=== PATIENT | female | born 1960 | race Caucasian/White ===

== ENCOUNTER 2018-03-16 09:07 | Emergency (ER) | payer OTHER ==
[~2018-03-16] VITALS: Ht 152.4 cm; Wt 50.0 kg
[~2018-03-16 09:07] MED LIST: ACCU-CHEK AVIV1 EAC2 MC; ADULT LOW DOSE81 M1 PO; ADVIL200 MG PO; ASPIRIN E.C.81 M1 PO; Aspirin E.C. PO; BAYER CHEWABLE81 MG PO; CALCITRIOL; CALCITRIOL0.25 MCG PO; Colace PO; Diflucan PO; Ecotrin PO; FOSINOPRIL; FOSINOPRIL SODI10 MG PO; HUMULIN N100 UNITS/ SC; INDERAL20 MG PO; INDERAL40 MG PO; INDERAL60 MG PO; Inderal PO; KENALOG,ARISTOC80 GM TP; KEPPRA; KEPPRA500 MG PO; KLONOPIN0.5 M1 PO; Keppra PO; KlonoPIN PO; LANTUS 10100 UNITS/; LANTUS 10100 UNITS/ SC; LANTUS 3 M100 UNITS/ SC; LANTUS 3 M100 UNITS1 SC; LEVEMIR100 UNIT/2 SC; LEVOTHYROXINE SODIUM; LEVOTHYROXINE100 MCG PO; LEVOTHYROXINE112 MCG PO; LEVOTHYROXINE137 MCG PO; LEVOTHYROXINE150 MCG PO; LEVOXYL112 MCG PO; LIPITOR10 MG PO; LISINOPRIL2.5 MG PO; LO-DOSE ASPIRIN81 M1 PO; LOW DOSE ASPIRI81 M1 PO; Levaquin PO; METHIMAZOLE10 MG PO; MICROZIDE12.5 M1 PO; MONOPRIL10 MG PO; NOHOMEMEDS; NOVOLIN R SC; NOVOLIN,HU100 UNITS1 SC; NOVOLOG 10100 UNITS/ SC; NOVOLOG PE100 UNITS/ SC; NOVOLOG100 UNIT/3 SC; PANTOPRAZOLE SO40 MG PO; POTASSIUM-9999 MG PO; PREDNISONE10 MG PO; PREDNISONE20 MG PO; PROAIR HFA8.5 GM IH; PROPRANOLOL HCL60 M1 PO; Protonix PO; ROCALTROL0.25 MCG PO; SENNA S TABLET1 EACH PO; SENOKOT S,PE1 TABLET PO; SERTRALINE HCL100 MG PO; SIMVASTATIN20 MG PO; ST. JOSEPH ASPI81 MG PO; STOOL SOFTENER1 EAC1 PO; STOOL SOFTENER100 MG PO; SYNTHROID175 MCG PO; SYNTHROID200 MCG PO; TAPAZOLE10 MG PO; TRAZODONE HCL; TRAZODONE HCL50 MG PO; Tums,OsCal PO; VITAMIN D1000 INTUN PO; Xarelto PO; ZOCOR20 MG PO; ZOLOFT100 MG PO; ZYRTEC10 M3 PO; [UNRECOGNIZED DRUG - OTHER]; [UNRECOGNIZED DRUG - REMARK]; predniSONE PO
[2018-03-16 10:21] LABS: APPEARANCE SL.HAZY ((CLEAR)); BILIRUBIN NEGATIVE; BLOOD NEGATIVE; COLOR YELLOW ((YELLOW)); GLUCOSE (STRIP) >=500; KETONES 80; LEUKOCYTES NEGATIVE; NITRITE NEGATIVE; PROTEIN (STRIP) 100; SPECIFIC GRAVITY 1.032 (1.000-1.030); UROBILINOGEN 0.2 MG/DL (0.2-1.0)
[2018-03-16 10:36] LABS: BACTERIA NONE SEEN /HPF; EPITHELIAL CELLS RARE /HPF; HYALINE CASTS 0-5 /LPF; MUCUS TRACE /LPF; RED BLOOD CELLS 0-5 /HPF (0-5); UCUL ADDED? YES; WHITE BLOOD CELLS 15-20 /HPF (0-5)
[2018-03-16 11:21] LABS: HEMATOCRIT 35.7 % (36.0-46.0); HEMOGLOBIN 13.2 G/DL (11.9-15.5); MCH 33.2 PG (29.0-34.0); MCV 89.7 FL (83-99); PLATELET COUNT 186 K/uL (156-360); RBC DIS.WIDTH-CV 12.7 % (11.8-14.6); RBC DIS.WIDTH-SD 41.9 % (39-53); RED BLOOD COUNT 3.98 M/uL (3.80-5.20); WHITE BLOOD COUNT 7.4 K/uL (4.1-10.2)
[2018-03-16 11:56] LABS: CHLORIDE 102 MEQ/L (99-109); CREATININE 0.6 MG/DL (0.6-1.3); GFR ESTIMATE (CALCULATED) > 59 mL/min/; GLUCOSE 335 mg/dL (70-99); POTASSIUM 2.9 MEQ/L (3.7-5.4); SODIUM 134 MEQ/L (136-147); UREA NITROGEN (BUN) 7 mg/dL (9-23)
[2018-03-16] MEDS ORDERED: 1-DAY4.6 GM VG (12:34)
[2018-03-16] MEDS ORDERED: KEFLEX500 MG PO (12:57)
[2018-03-16 15:20] VITALS: BP 125/75
== END 2018-03-16 15:28 | disposition home or self-care (01) ==
LOC: EME 09:07
PROVIDERS: Nurse Practitioner Family
DX: E87.6 Hypokalemia (principal); B37.3 Candidiasis of vulva and vagina; L03.113 Cellulitis of right upper limb; R53.1 Weakness; E11.9 Type 2 diabetes mellitus without complications; Z87.440 Personal history of urinary (tract) infections; Z85.42 Personal history of malignant neoplasm of other parts of uterus; I11.0 Hypertensive heart disease with heart failure; I50.9 Heart failure, unspecified; J44.9 Chronic obstructive pulmonary disease, unspecified; R56.9 Unspecified convulsions; K21.9 Gastro-esophageal reflux disease without esophagitis; I25.2 Old myocardial infarction; Z79.82 Long term (current) use of aspirin; F17.200 Nicotine dependence, unspecified, uncomplicated; Z88.8 Allergy status to other drugs, medicaments and biological substances
CPT/HCPCS: 80048; 81003; 85027; 87086 GA; 99281; 99285; J3480; J7030; J7040